=== PATIENT | male | born 1980 | race Caucasian/White ===

== ENCOUNTER → 2017-10-23 | Outpatient (CLI) | payer BC, OTHER ==
[~2017-10-23] MED LIST: ALPR1 PO; AMIT10 PO; AMIT75 PO; Ambien10 MG PO; FLUO10 PO; Hydrocodone-Ap1 EA20 PO; Nasonex17 GM; OMEPRAZOLE MAGN20 MG PO; ONDA4ODT MM; PROBIOTIC1 EAC1 PO; Pseudoephedrine30 MG PO; QUET100 PO
== END ==
LOC: LAB 11:48 → LAB SHORT 11:48
DX: Z51.81 Encounter for therapeutic drug level monitoring (principal); Z79.899 Other long term (current) drug therapy
CPT/HCPCS: G0480

== ENCOUNTER → 2017-10-25 | Outpatient (CLI) | payer OTHER | LOC: LAB SHORT 10:50 → LAB 10:50 | DX: Z51.81 Encounter for therapeutic drug level monitoring (principal); Z79.899 Other long term (current) drug therapy | CPT/HCPCS: G0480 ==

== ENCOUNTER 2023-03-02 19:44 | Emergency (ER) | payer OTHER ==
[~2023-03-02] VITALS: Ht 188 cm; Wt 99.8 kg
[2023-03-02 23:33] LABS: BASOPHILS ABSOLUTE AUTO 0.03 K/mm3 (0.00-0.23); BASOPHILS PERCENT AUTO 0 % (0-2); EOSINOPHILS ABSOLUTE AUTO 0.16 K/mm3 (0.00-0.68); EOSINOPHILS PERCENT AUTO 2 % (0-6); Hematocrit 42.1 % (37.0-53.0); Hemoglobin 14.6 g/dL (13.5-17.5); IMMATURE GRAN ABSOLUTE AUTO 0.02 K/mm3 (0.00-0.10); IMMATURE GRAN PERCENT AUTO 0 % (0-1); LYMPHOCYTES ABSOLUTE AUTO 2.04 K/mm3 (0.84-5.20); LYMPHOCYTES PERCENT AUTO 24 % (21-46); MONOCYTES ABSOLUTE AUTO 0.92 K/mm3 (0.16-1.47); MONOCYTES PERCENT AUTO 11 % (4-13); Mean Corpuscular HGB 30.7 pg (26.0-34.0); Mean Corpuscular HGB Conc 34.7 g/dL (31.5-36.5); Mean Corpuscular Volume 88 fL (80-100); Mean Platelet Volume 9.2 fL (9.1-12.4); NEUTROPHILS ABSOLUTE AUTO 5.45 K/mm3 (1.96-9.15); NEUTROPHILS PERCENT AUTO 63 % (41-73); Platelet Count 352 K/mm3 (150-400); RDW Coefficient Variation 12.4 % (11.7-14.2); RDW Standard Deviation 39.9 fL (35.1-46.3); Red Blood Cell Count 4.76 M/mm3 (4.30-5.90); White Blood Cell Count 8.62 K/mm3 (4.00-11.30)
[2023-03-02 23:59] LABS: Albumin, Blood 3.7 g/dL (3.4-5.0); Bilirubin, Total 0.4 mg/dL (0.1-1.0); Bun/Creatinine Ratio 33.5 (12.0-20.0); Calcium, Blood 9.1 mg/dL (8.5-10.1); Creatinine, Blood 0.72 mg/dL (0.60-1.20); Globulin, Blood 3.7 g/dL (2.2-4.0); Total Protein, Blood 7.4 g/dL (6.4-8.2)
[2023-03-03 00:30] VITALS: BP 106/71
== END 2023-03-03 01:04 | disposition home or self-care (01) ==
LOC: ER 19:44
PROVIDERS: Emergency Medicine
DX: R53.83 Other fatigue (principal)
CPT/HCPCS: 80053; 82947; 83605; 85025; 99285

== ENCOUNTER 2023-03-09 13:54 | Emergency (ER) | payer OTHER ==
[~2023-03-09] VITALS: Ht 177.8 cm; Wt 81.7 kg
[2023-03-09 14:24] VITALS: BP 133/94
== END 2023-03-09 14:32 | disposition left against medical advice (07) ==
LOC: ER 13:54
DX: Z53.21 Procedure and treatment not carried out due to patient leaving prior to being seen by health care provider (principal)
CPT/HCPCS: 99282-25

== ENCOUNTER 2023-11-09 20:16 | Emergency (ER) | payer OTHER ==
[~2023-11-09] VITALS: Ht 177.8 cm; Wt 81.2 kg
[2023-11-09 20:23] VITALS: BP 127/78
== END 2023-11-09 22:42 | disposition home or self-care (01) ==
LOC: ER 20:16
DX: T69.8XXA Other specified effects of reduced temperature, initial encounter (principal); Z79.899 Other long term (current) drug therapy
CPT/HCPCS: 99283